=== PATIENT | female | born 1975 | race Caucasian/White ===

== ENCOUNTER → 2023-07-05 18:40 | Outpatient (REF) | payer OTHER, SELFPAY | LOC: WDC 18:40 | PROVIDERS: ATTENDING PHYSICIAN Family Medicine | DX: Z12.31 Encounter for screening mammogram for malignant neoplasm of breast (principal) | CPT/HCPCS: 77063; 77067 ==

== ENCOUNTER → 2025-01-23 19:04 | Outpatient (REF) | payer OTHER, SELFPAY | LOC: RAD 19:04 | PROVIDERS: ATTENDING PHYSICIAN Internal Medicine Rheumatology | DX: M05.79 Rheumatoid arthritis with rheumatoid factor of multiple sites without organ or systems involvement (principal) | CPT/HCPCS: 73130; 73630 ==